=== PATIENT | male | born 2000 | race Caucasian/White ===

== ENCOUNTER 2018-03-20 20:04 | Emergency (ER) | payer BC ==
[2018-03-20 20:20] VITALS: BP 151/83
--- NOTE | 2018-03-20 21:04 | RAD ---
HISTORY: Left ankle pain COMPARISONS: None VIEWS: 3, Frontal, lateral, and oblique views of the left ankle FINDINGS: BONE DENSITY: Normal. BONES: There is no displaced fracture. JOINTS: There is no arthropathy. ALIGNMENT: There is no dislocation. SOFT TISSUES: There is soft tissue swelling predominantly over the lateral malleolus. OTHER FINDINGS: None. IMPRESSION: SOFT TISSUE SWELLING. NO ACUTE OSSEOUS INJURY. IF SYMPTOMS PERSIST, RECOMMEND REPEAT IMAGING.
--- NOTE | 2018-03-20 21:32 | ED ---
Lower Extremity - HPI Summary HPI Summary: 17 male presents with left ankle injury today. He states he fell off a skateboard. He states he inverted his ankle. Pain is over the lateral aspect of his ankle. He denies any numbness or tingling. He is able to ambulate. He has been placing ice on the area. He hasn't taking anything for his pain. Pain is worse with ambulation. He denies any previous injury to the area. - History of Current Complaint Chief Complaint: EDExtremityLower Stated Complaint: LT ANKLE INJURY Time Seen by Provider: 03/20/18 20:52 Pain Intensity: 6 - Allergies/Home Medications Allergies/Adverse Reactions: Allergies Allergy/AdvReac Type Severity Reaction Status Date / Time No Known Allergies Allergy Verified 03/20/18 20:19 Home Medications: Home Medications NK [No Home Medications Reported] 03/20/18 [History Confirmed 03/20/18] PMH/Surg Hx/FS Hx/Imm Hx Endocrine/Hematology History: Denies: Hx Anticoagulant Therapy Infectious Disease History: No Infectious Disease History: Denies: Traveled Outside the [place] in Last 30 Days - Social History Alcohol Use: Rare Substance Use Type: Reports: None Smoking Status (MU): Never Smoked Tobacco Review of Systems Negative: Fever Negative: Chest Pain Negative: Shortness Of Breath Positive: Myalgia - left ankle pain All Other Systems Reviewed And Are Negative: Yes Physical Exam Triage Information Reviewed: Yes Vital Signs On Initial Exam: Initial Vitals Temp Pulse Resp BP Pulse Ox 99.4 F 82 16 151/83 100 03/20/18 20:17 03/20/18 20:17 03/20/18 20:17 03/20/18 20:17 03/20/18 20:17 Vital Signs Reviewed: Yes Appearance: Positive: Well-Appearing Skin: Positive: Warm, Dry Head/Face: Positive: Normal Head/Face Inspection Eyes: Positive: Normal, Conjunctiva Clear Respiratory/Lung Sounds: Positive: Clear to Auscultation, Breath Sounds Present Cardiovascular: Positive: Normal, RRR Musculoskeletal: Positive: Strength/ROM Intact - left ankle, Edema Left - ankle , Other - good pulses, capillary refill<2 secs Neurological: Positive: Normal Psychiatric: Positive: Normal Diagnostics - Vital Signs Vital Signs Temp Pulse Resp BP Pulse Ox 03/20/18 20:17 99.4 F 82 16 151/83 100 - Laboratory Lab Statement: Any lab studies that have been ordered have been reviewed, and results considered in the medical decision making process. - Radiology ankle Xray Interpretation: No Acute Changes Radiology Interpretation Completed By: Radiologist Lower Extremity Course/Dx - Course Course Of Treatment: 17 male presents with left ankle injury today. He states he fell off a skateboard. He states he inverted his ankle. Pain is over the lateral aspect of his ankle. He denies any numbness or tingling. He is able to ambulate. He has been placing ice on the area. He hasn't taking anything for his pain. Pain is worse with ambulation. He denies any previous injury to the area. On exam has edema the lateral aspect of left ankle. Neurovascular intact. X-ray normal. We will place an Krunal and crutches. Patient understand and agree this plan. - Diagnoses Differential Diagnosis/HQI/PQRI: Positive: Fracture (Closed), Sprain, Strain Provider Diagnoses: Left ankle injury Discharge - Sign-Out/Discharge Documenting (check all that apply): Discharge/Admit/Transfer - Discharge Plan Condition: Good Disposition: HOME Patient Education Materials: Ankle Sprain (ED) Referrals: Non Staff,Doctor [Primary Care Provider] - Additional Instructions: Stay off ankle as much as possible Ice, elevate, keep in KRUNAL Ibuprofen every 6 hours for pain Follow up with primary if no improvement Return to ED if develop or any new or worsening symptoms - Billing Disposition and Condition Condition: GOOD Disposition: HOME
== END 2018-03-20 21:42 | disposition home or self-care (01) ==
LOC: ED 20:04
DX: S99.912A Unspecified injury of left ankle, initial encounter (principal); V00.131A Fall from skateboard, initial encounter; Y93.51 Activity, roller skating (inline) and skateboarding; Y92.9 Unspecified place or not applicable
CPT/HCPCS: 99282

== ENCOUNTER → 2018-05-23 11:07 | Emergency (ER) | payer BC ==
[2018-05-23 11:24] VITALS: BP 153/82
--- NOTE | 2018-05-23 12:36 | RAD ---
HISTORY: right testicle pain COMPARISONS: None TECHNIQUE: Multiple transverse and longitudinal ultrasound images were obtained of the scrotum, using grayscale, color Doppler, and spectral Doppler imaging. FINDINGS: RIGHT: RIGHT TESTICLE: The right testicle measures 4.8 x 2.1 x 3.4 cm. The right testicle is homogeneous in echotexture, without testicular parenchymal mass. Normal arterial and venous waveforms are identified within the right testicle on spectral Doppler imaging. RIGHT EPIDIDYMIS: The right epididymis measures 1 cm at the head. RIGHT SCROTUM: There is no hydrocele or varicocele. LEFT: LEFT TESTICLE: The left testicle measures 4.8 x 2.1 x 3 cm. The left testicle is homogeneous in echotexture, without testicular parenchymal mass. Normal arterial and venous waveforms are identified within the left testicle on spectral Doppler imaging. LEFT EPIDIDYMIS: The left epididymis measures 1.3 cm at the head. LEFT SCROTUM: There is a small left varicocele. There is no hydrocele. OTHER: None IMPRESSION: 1. NO TESTICULAR PARENCHYMAL MASS. 2. NO SONOGRAPHIC FEATURES OF TORSION. PLEASE NOTE THAT PARTIAL OR INTERMITTENT TORSION MAY BE SONOGRAPHICALLY NORMAL. 3. SMALL LEFT VARICOCELE
--- NOTE | 2018-05-23 13:26 | ED ---
Wood Rubio Rebecca, scribed for Albino Best MD on 05/23/18 at 1140 . GI/ HPI - HPI Summary HPI Summary: Pt is a 17 y/o M who presents to ED c/o right testicular pain. Sx began today, about an hour to an hour and a half [employer] while driving to a store. Pain has gradually worsened since onset. On triage, pain is moderate, ranked 5/10 and characterized as dull. Sx aggravated by palpation, alleviated by nothing. Reports he ejaculated this morning, but pain did not start until hours after. No prior similar episodes. Called his PCP who recommended he come to the ED. - History of Current Complaint Chief Complaint: EDUrogenitalProblems Time Seen by Provider: 05/23/18 11:35 Stated Complaint: TESTICULAR PAIN Hx Obtained From: Patient Onset/Duration: Started Hours Ago - 1-1.5, Still Present Current Severity: Moderate Pain Intensity: 5 Additional Locations for Males: Testicles - Right Pain Characteristics: Dull Associated Signs and Symptoms: Positive: Negative Aggravating Factor(s): Palpation Alleviating Factor(s): Nothing - Allergy/Home Medications Allergies/Adverse Reactions: Allergies Allergy/AdvReac Type Severity Reaction Status Date / Time No Known Allergies Allergy Verified 05/23/18 11:12 PMH/Surg Hx/FS Hx/Imm Hx Endocrine/Hematology History: Denies: Hx Anticoagulant Therapy, Hx Diabetes Cardiovascular History: Denies: Hx Hypertension Infectious Disease History: No Infectious Disease History: Denies: Traveled Outside the [place] in Last 30 Days - Family History Known Family History: Negative: Hypertension, Diabetes - Social History Alcohol Use: Rare Substance Use Type: Reports: None Smoking Status (MU): Never Smoked Tobacco Review of Systems Negative: Fever Positive: pain - Right testicular All Other Systems Reviewed And Are Negative: Yes Physical Exam - Summary Physical Exam Summary: Appearance: The patient is well-nourished in no acute distress and in no acute pain. Skin: The skin is warm and dry and skin color reflects adequate perfusion. HEENT: The head is normocephalic and atraumatic. The pupils are equal and reactive. The conjunctivae are clear and without drainage. Nares are patent and without drainage. Mouth reveals moist mucous membranes and the throat is without erythema and exudate. The external ears are intact. The ear canals are patent and without drainage. The tympanic membranes are intact. Neck: The neck is supple with full range of motion and non-tender. There are no carotid bruits. There is no neck vein distension. Respiratory: Chest is non-tender. Lungs are clear to auscultation and breath sounds are symmetrical and equal. Cardiovascular: Heart is regular rate and rhythm. There is no murmur or rub auscultated. There is no peripheral edema and pulses are symmetrical and equal. Abdomen: The abdomen is soft and non-tender. There are normal bowel sounds heard in all four quadrants and there is no organomegaly palpated. Musculoskeletal: There is no back tenderness noted. Extremities are non-tender with full range of motion. There is good capillary refill. There is no peripheral edema or calf tenderness elicited. Neurological: Patient is alert and oriented to person, place and time. The patient has symmetrical motor strength in all four extremities. Cranial nerves are grossly intact. Deep tendon reflexes are symmetrical and equal in all four extremities. Psychiatric: The patient has an appropriate affect and does not exhibit any anxiety or depression. : Normal cremasteric reflex, epididymis is slightly tender Triage Information Reviewed: Yes Vital Signs On Initial Exam: Initial Vitals Temp Pulse Resp BP Pulse Ox 98.0 F 92 16 141/73 98 05/23/18 11:09 05/23/18 11:09 05/23/18 11:09 05/23/18 11:09 05/23/18 11:09 Vital Signs Reviewed: Yes Diagnostics - Vital Signs Vital Signs Temp Pulse Resp BP Pulse Ox 05/23/18 11:31 98.7 F 83 16 153/82 99 05/23/18 11:23 98.7 F 83 16 153/82 99 05/23/18 11:09 98.0 F 92 16 141/73 98 - Laboratory Lab Statement: Any lab studies that have been ordered have been reviewed, and results considered in the medical decision making process. - Ultrasound No standard instances Ultrasound Interpretation Completed By: Radiologist - Testicular US: 1. NO TESTICULAR PARENCHYMAL MASS. 2. NO SONOGRAPHIC FEATURES OF TORSION. PLEASE NOTE THAT PARTIAL OR INTERMITTENT TORSION MAY BE SONOGRAPHICALLY NORMAL. 3. SMALL LEFT VARICOCELE ED physician reviewed this report. Re-Evaluation - Re-Evaluation First Eval Re-Evaluation Time: 13:07 Change: Improved Comment: Discussed US results and D/C plan. Pt's pain has improved. GIGU Course/Dx - Course Course Of Treatment: Mr. Abreu presents complaining of the acute onset of left testicular pain about 90 minutes prior to presentation. He cannot list any exacerbating or relieving conditions. His exam was unremarkable and ultrasound was obtained which was also WNL. Urine is obtained for the possibility of GC or chlamydia although he denies any symptomatology. He is referred to urology and is feeling improved at discharge. We discussed the possibility of intermittent torsion and he will return for the acute onset of more pain. - Diagnoses Provider Diagnoses: Testicular pain Discharge - Sign-Out/Discharge Documenting (check all that apply): Discharge/Admit/Transfer - Discharge - Discharge Plan Condition: Stable Disposition: HOME Patient Education Materials: Testicle Pain (ED) Referrals: Non Staff,Doctor [Medical Doctor] - 2 Days Regino Torre MD [Medical Doctor] - 2 Days Additional Instructions: RETURN TO ED FOR ANY NEW OR WORSENING SYMPTOMS. - Billing Disposition and Condition Condition: STABLE Disposition: Home The documentation as recorded by the Wood fitzpatrick Rebecca accurately reflects the service I personally performed and the decisions made by , Albino Best MD.
[2018-05-23 13:32] LABS: Urine Appearance Clear; Urine Blood Negative (Negative); Urine Color Yellow; Urine Ketones Negative (Negative); Urine Protein Negative (Negative); Urine Specific Gravity 1.011 (1.010-1.030); Urine Urobilinogen Negative (Negative)
== END | disposition home or self-care (01) ==
LOC: ED 11:07
DX: N50.811 Right testicular pain (principal); N50.812 Left testicular pain
CPT/HCPCS: 76870; 81003; 87491; 87591; 99282

== ENCOUNTER 2018-07-15 21:57 | Emergency (ER) | payer BC ==
[2018-07-15] MEDS ORDERED: NS 0.9% 1000 ML* 1,000 ML IV ONE (22:28)
[2018-07-15] MEDS ORDERED: Clindamycin 600 MG IVPREMIX(* 600 MG/50 ML SDV IV ONE (22:28)
[2018-07-15] MEDS ORDERED: Dexamethasone IV* 4 MG/ML 1 ML (4 MG) IV SLOW PU ONE (22:31)
[2018-07-15] MEDS ORDERED: Lidocaine 2% VISCOUS* 15 ML UDC PO ONE (22:31)
--- NOTE | 2018-07-15 22:36 | ED ---
Throat Pain/Nasal Congestion - HPI Summary HPI Summary: 17-year-old male presents with sore throat for the past 5 days. He states has been having fevers for 5 days. States has to continue taking Tylenol and ibuprofen to keep the fever down but states the fever keeps returning. Denies any headache. No neck stiffness. He states that he has been on antibiotics for 2 days. He is on cephalosporin. He states he saw primary and convenient care. He states he has been producing more saliva. It's painful to swallow. No shortness of breath or chest pain. Does not have a history of strep. He was tested for strep and mono and was negative. No cough. No bowel pain. No fatigue. Has no medical conditions. - History of Current Complaint Chief Complaint: EDFever Time Seen by Provider: 07/15/18 22:18 - Allergies/Home Medications Allergies/Adverse Reactions: Allergies Allergy/AdvReac Type Severity Reaction Status Date / Time No Known Allergies Allergy Verified 07/15/18 22:01 PMH/Surg Hx/FS Hx/Imm Hx Endocrine/Hematology History: Denies: Hx Anticoagulant Therapy, Hx Diabetes Cardiovascular History: Denies: Hx Hypertension Infectious Disease History: No Infectious Disease History: Denies: Traveled Outside the [place] in Last 30 Days - Family History Known Family History: Negative: Hypertension, Diabetes - Social History Alcohol Use: Rare Substance Use Type: Reports: None Smoking Status (MU): Never Smoked Tobacco Review of Systems Positive: Fever Positive: Sore Throat Negative: Chest Pain Negative: Shortness Of Breath All Other Systems Reviewed And Are Negative: Yes Physical Exam Triage Information Reviewed: Yes Vital Signs On Initial Exam: Initial Vitals Temp Pulse Resp BP Pulse Ox 98.9 F 86 20 143/78 97 07/15/18 21:59 07/15/18 21:59 07/15/18 21:59 07/15/18 21:59 07/15/18 21:59 Vital Signs Reviewed: Yes Appearance: Positive: Well-Appearing Skin: Positive: Warm, Dry Head/Face: Positive: Normal Head/Face Inspection Eyes: Positive: Normal, Conjunctiva Clear ENT: Positive: Pharyngeal erythema, Tonsillar swelling - +2 symmetric, Tonsillar exudate, Uvula midline - enlarged, Other - soft palate symmetric. Negative: Trismus, Muffled voice Respiratory/Lung Sounds: Positive: Clear to Auscultation, Breath Sounds Present Cardiovascular: Positive: Normal, RRR Musculoskeletal: Positive: Normal Neurological: Positive: Normal Psychiatric: Positive: Normal Diagnostics - Vital Signs Vital Signs Temp Pulse Resp BP Pulse Ox 07/15/18 21:59 98.9 F 86 20 143/78 97 - Laboratory Result Diagrams: 07/15/18 22:34 07/15/18 22:34 Lab Statement: Any lab studies that have been ordered have been reviewed, and results considered in the medical decision making process. Re-Evaluation - Re-Evaluation First Eval Re-Evaluation Time: 23:24 Change: Improved Comment: feeling better EENT Course/Dx - Course Course Of Treatment: 17-year-old male presents with sore throat for the past 5 days. He states has been having fevers for 5 days. States has to continue taking Tylenol and ibuprofen to keep the fever down but states the fever keeps returning. Denies any headache. No neck stiffness. He states that he has been on antibiotics for 2 days. He is on cephalosporin. He states he saw primary and convenient care. He states he has been producing more saliva. It' s painful to swallow. No shortness of breath or chest pain. Does not have a history of strep. He was tested for strep and mono and was negative. No cough. No bowel pain. No fatigue. Has no medical conditions. on exam has tonsils erythema and exudate. uvula midline but enlarged. soft palate symmetric and tonsil symmetric. will treat for uvulitis with clindamycin. will give follow up with ent as tonsils have potential to abscess with so much swelling. no trimus. no muffled voice. wbc normal. electrolytes normal. - Differential Diagnoses Differential Diagnoses: Peritonsillar Ulcer, Tonsilitis, Other - uvulitis, peritonsillar abscess - Diagnoses Provider Diagnoses: Uvulitis Discharge - Sign-Out/Discharge Documenting (check all that apply): Patient Departure - Discharge Plan Condition: Good Disposition: HOME Prescriptions: Clindamycin Cap(NF) [Clindamycin Cap 300 mg Cap(NF)] 300 mg PO TID #29 cap Dexamethasone TAB* [Decadron TAB*] 4 mg PO DAILY #4 tab Magic Mouth Was-NEO/MAAL/LIDO* 5 ml SWISH SPIT QID #100 ml Patient Education Materials: Uvulitis (ED) Referrals: Gonzalo Quesada MD [Primary Care Provider] - Minh Keenan MD [Medical Doctor] - Additional Instructions: call ent office for follow up Take clindamycin three times a day for 10 days, stop other antibiotic Continue Tylenol and ibuprofen for fever every 6 hours take decadron daily for 4 days use 5ml magic mouth wash swish and spit four times a day Return to ED if develop shortness of breath, unable to manage secretions, or any new or worsening symptoms - Billing Disposition and Condition Condition: GOOD Disposition: Home
[2018-07-15 22:44] LABS: ABS Basophils 0 10^3/ul (0-0.2); ABS Eosinophils 0 10^3/ul (0-0.6); ABS Lymphocytes 1.2 10^3/ul (1.0-4.8); ABS Monocytes 1.2 10^3/ul (0-0.8); ABS Neutrophils 4.8 10^3/ul (1.5-7.7); ABS Nucleated RBC 0 10^3/ul; Eosinophil % 0.4 % (0-6); Hematocrit 42 % (42-52); Hemoglobin 14.5 g/dl (14.0-18.0); Mean Corpuscular HGB Conc 34 g/dl (31-36); Mean Corpuscular Hemoglobin 29 pg (27-31); Mean Corpuscular Volume 83 fL (80-94); Nucleated Red Blood Cells % 0.2; Platelet Count 151 10^3/ul (150-450); Red Blood Count 5.09 10^6/ul (4.00-5.40); Red Cell Distribution Width 13 % (10.5-15); White Blood Count 7.3 10^3/ul (3.5-10.8)
[2018-07-15 23:01] LABS: EGFR Non-African American 104.7 (>60)
[2018-07-15 23:43] VITALS: BP 140/92
== END 2018-07-15 23:51 | disposition home or self-care (01) ==
LOC: ED 21:57
DX: K12.2 Cellulitis and abscess of mouth (principal)
CPT/HCPCS: 36415; 80053; 85025; 86308; 96365; 96375; 99283; J1100